=== PATIENT | male | born 1960 | race Caucasian/White ===

== ENCOUNTER 2017-12-22 12:38 | Inpatient (IN) ==
[2017-12-22] MEDS ORDERED: ONDANSETRON 4 MG/2 ML VIAL IV STA (13:23)
[2017-12-22] MEDS ORDERED: MORPHINE 2 MG/1 ML SYRINGE IV STA (13:23)
[2017-12-22] MEDS ORDERED: MORPHINE 10 MG/1 ML VIAL ONE (13:27)
[2017-12-22] MEDS ORDERED: ONDANSETRON 4 MG/2 ML VIAL ONE (13:27)
[2017-12-22] MEDS ORDERED: METOPROLOL TARTRATE 5 MG/5 ML VIAL IV ONE (13:56)
[2017-12-22] MEDS ORDERED: MAGNESIUM HYDROXIDE SUSP 30 ML UDCUP PO PRN (14:01)
[2017-12-22] MEDS ORDERED: POTASSIUM CHLORIDE 20 MEQ TABLET PO PRN (14:01)
[2017-12-22] MEDS ORDERED: BISACODYL 5 MG TABLET PO PRN (14:01)
[2017-12-22] MEDS ORDERED: ZALEPLON 5 MG CAPSULE PO PRN (14:01)
[2017-12-22] MEDS ORDERED: ONDANSETRON 4 MG/2 ML VIAL IV PRN (14:01)
[2017-12-22] MEDS ORDERED: MAGNESIUM SULF RIDER 2 GM in PREMIX 1 EACH IV PRN ×2 (14:01→14:05)
[2017-12-22] MEDS ORDERED: diphenhydrAMINE CAP 25 MG CAPSULE PO ONE (14:05)
[2017-12-22] MEDS ORDERED: DIAZEPAM 5 MG TABLET PO ONE (14:05)
[2017-12-22] MEDS ORDERED: POTASSIUM CHLORIDE RIDER 10 MEQ in PREMIX 1 EACH IV PRN (14:05)
[2017-12-22] MEDS ORDERED: METOPROLOL TARTRATE 5 MG/5 ML VIAL IV STA (14:12)
[2017-12-22] MEDS ORDERED: LIDOCAINE 1% 20 ML VIAL ONE (14:22)
[2017-12-22] MEDS ORDERED: MIDAZOLAM 2 MG/2 ML VIAL ONE ×2 (14:28→15:35)
[2017-12-22] MEDS ORDERED: MEPERIDINE 25 MG/1 ML VIAL ONE ×3 (14:28→15:35)
[2017-12-22] MEDS ORDERED: HEPARIN 5,000 UNIT/1 ML VIAL ONE ×2 (14:50→15:18)
[2017-12-22] MEDS ORDERED: TIROFIBAN 5,000 MCG/100 ML PREMIX IV ONE (14:51)
[2017-12-22] MEDS ORDERED: TIROFIBAN 5,000 MCG/100 ML PREMIX IV SCH (14:57)
[2017-12-22] MEDS ORDERED: NITROGLYCERIN DRIP 50 MG/250 ML BOTTLE IV ONE (15:32)
[2017-12-22] MEDS ORDERED: TICAGRELOR 90 MG TABLET ONE (16:17)
[2017-12-22] MEDS ORDERED: MORPHINE 2 MG/1 ML SYRINGE IV PRN (16:37)
[2017-12-22] MEDS ORDERED: NITROGLYCERIN SL 0.4 MG TABLET SL PRN (16:37)
[2017-12-22] MEDS ORDERED: ACETAMINOPHEN 325 MG TABLET PO PRN (16:37)
[2017-12-22] MEDS: ASPIRIN CHEW 81 MG TABLET PO SCH (18:09)
[2017-12-22] MEDS: CARVEDILOL 3.125 MG TABLET PO SCH ×2 (18:09→20:12)
[2017-12-22] MEDS: PANTOPRAZOLE 40 MG TABLET PO SCH (18:36)
[2017-12-22] MEDS: NITROGLYCERIN 2% OINT 1 INCH/GM PACK TOP SCH ×3 (18:36→23:07)
[2017-12-22] MEDS: SODIUM CHLORIDE 0.45% 1,000 ML IV SCH ×2 (18:36→20:17)
[2017-12-22 19:38] LABS: Troponin I Only 34.4 NG/ML (0.00-0.045)
[2017-12-22] MEDS: ACETAMINOPHEN/CODEINE 300-30 MG TABLET PO PRN (20:11)
[2017-12-22] MEDS: TICAGRELOR 90 MG TABLET PO SCH (20:12)
[2017-12-22] MEDS ORDERED: ROSUVASTATIN 20 MG TABLET PO SCH (21:00)
[2017-12-23 01:18] LABS: Basophils % 0.2 % (0.0-0.8); Eosinophils % 0.5 % (0.00-10.9); Hematocrit 40.5 VOL% (42.0-52.0); Immature Granulocytes % 0.2 %; Immature Granulocytes Absolute 0.02 #; Lymphocytes # 2.7 10*3/uL (1.4-4.0); Lymphocytes % 32.8 % (21.2-54.2); Mean Corpuscular HGB Conc 34.6 GM/DL (32-36); Mean Corpuscular Hemoglobin 28 PG (27-34); Mean Corpuscular Volume 80.7 FL (87-102); Mean Platelet Volume 10.2 FL (9.6-12.0); Monocytes # 0.7 10*3/uL (0.11-0.8); Monocytes % 8.7 % (1.7-12.7); Neutrophils # 4.7 10*3/uL (1.4-7.4); Neutrophils % 57.6 % (38.7-73.9); Platelet Count 141 T/CUMM (130-400); Red Blood Count 5.02 MC/CUMM (3.8-5.5); White Blood Count 8.2 T/CUMM (4-12)
[2017-12-23] MEDS ORDERED: SODIUM CHLORIDE 0.45% 1,000 ML IV SCH (01:30)
[2017-12-23 02:01] LABS: CKMB % 18.1 %
[2017-12-23 02:02] LABS: Troponin I Only 23.2 NG/ML (0.00-0.045)
[2017-12-23 02:26] LABS: Risk Ratio 2.65; VLDL CHOLESTEROL 13.6 MG/DL
[2017-12-23] MEDS: ACETAMINOPHEN/CODEINE 300-30 MG TABLET PO PRN (03:54)
[2017-12-23] MEDS: NITROGLYCERIN 2% OINT 1 INCH/GM PACK TOP SCH ×3 (03:55→12:04)
[2017-12-23] MEDS: CARVEDILOL 3.125 MG TABLET PO SCH (08:37)
[2017-12-23] MEDS: PANTOPRAZOLE 40 MG TABLET PO SCH (08:37)
[2017-12-23] MEDS: ASPIRIN CHEW 81 MG TABLET PO SCH (08:37)
[2017-12-23] MEDS: TICAGRELOR 90 MG TABLET PO SCH (08:37)
[2017-12-23 09:37] LABS: CKMB % 11.9 %
[2017-12-23 09:40] LABS: Troponin I Only 14.5 NG/ML (0.00-0.045)
[2017-12-23 14:11] VITALS: BP 140/85
== END 2017-12-23 14:50 | disposition home or self-care (01) | DRG 247 ==
LOC: EDBD → EDUNIT# → N.ED 12:38 → N.EDINP 14:01 → N.CC 14:10
PROVIDERS: ADMIT Internal Medicine Cardiovascular Disease; ATTEND Internal Medicine Cardiovascular Disease
PROC: CLCCHCL (ICD-10-PCS; 2017-12-22 15:15)

== ENCOUNTER 2018-03-19 11:17 | Inpatient (IN) ==
[2018-03-19] MEDS ORDERED: CLOPIDOGREL 300 MG TABLET ONE (11:22)
[2018-03-19] MEDS ORDERED: ADENOSINE 6 MG/2 ML VIAL ONE (11:23)
[2018-03-19] MEDS ORDERED: DILTIAZEM 50 MG/10 ML VIAL IV ONE ×2 (11:25→12:21)
[2018-03-19] MEDS ORDERED: DILTIAZEM 100 MG VIAL.ADD IV ONE (11:25)
[2018-03-19] MEDS ORDERED: SODIUM CHLORIDE 0.9% 100 ML IV ONE ×2 (11:25→14:42)
[2018-03-19] MEDS ORDERED: MAGNESIUM SULF RIDER 2 GM in PREMIX 1 EACH IV STA (11:28)
[2018-03-19] MEDS ORDERED: DILTIAZEM 50 MG/10 ML VIAL IV STA ×2 (11:28→12:25)
[2018-03-19] MEDS ORDERED: SODIUM CHLORIDE 0.9% 500 ML IV STA ×2 (11:28→14:05)
[2018-03-19] MEDS ORDERED: CLOPIDOGREL 300 MG TABLET PO STA (11:29)
[2018-03-19] MEDS: DILTIAZEM INJ 100 MG in SODIUM CHLORIDE 0.9% 100 ML IV SCH (11:35)
[2018-03-19 11:45] LABS: Basophils % 0.2 % (0.0-0.8); Eosinophils # 0.2 10*3/uL (0.0-0.87); Eosinophils % 2.7 % (0.00-10.9); Hematocrit 43.8 VOL% (42.0-52.0); Hemoglobin 14.8 GM/DL (14.0-18.0); Immature Granulocytes % 0.2 %; Immature Granulocytes Absolute 0.01 #; Lymphocytes # 2.7 10*3/uL (1.4-4.0); Lymphocytes % 45.1 % (21.2-54.2); Mean Corpuscular HGB Conc 33.8 GM/DL (32-36); Mean Corpuscular Hemoglobin 28 PG (27-34); Mean Corpuscular Volume 83.6 FL (87-102); Mean Platelet Volume 9.8 FL (9.6-12.0); Monocytes # 0.5 10*3/uL (0.11-0.8); Monocytes % 8.5 % (1.7-12.7); Neutrophils # 2.6 10*3/uL (1.4-7.4); Neutrophils % 43.3 % (38.7-73.9); Platelet Count 170 T/CUMM (130-400); Red Blood Count 5.24 MC/CUMM (3.8-5.5); Red Cell Distribution Width 13.2 % (9.3-17.3); White Blood Count 5.9 T/CUMM (4-12)
[2018-03-19 11:53] LABS: Partial Thromboplastin Time 27.8 SECS (0-40)
[2018-03-19] MEDS ORDERED: MAGNESIUM SULF RIDER 50 ML IV ONE (11:56)
[2018-03-19 12:18] LABS: Alanine Aminotransferase 64 U/L (16-61); Albumin 3.5 G/DL (3.4-5.0); Alkaline Phosphatase 166 U/L (45-117); Aspartate Amino Transferase 38 U/L (0-37); Blood Urea Nitrogen 12 MG/DL (7-18); Glucose 93 MG/DL (74-106); Osmolality,Calculated 280.3 MOS/KG (273-304); Potassium 3.7 MMOL/L (3.5-5.1); Sodium 141 MMOL/L (136-145); Thyroid Stimulating Hormone < 0.005 uIU/ml (0.358-3.74); Total Protein 7.3 G/DL (6.4-8.3); Troponin I Only 0.019 NG/ML (0.00-0.045)
[2018-03-19] MEDS ORDERED: ONDANSETRON 4 MG/2 ML VIAL IV PRN (13:11)
[2018-03-19] MEDS ORDERED: DOCUSATE SODIUM 100 MG CAPSULE PO PRN (13:11)
[2018-03-19] MEDS ORDERED: ACETAMINOPHEN 325 MG TABLET PO PRN (13:11)
[2018-03-19] MEDS ORDERED: ZALEPLON 5 MG CAPSULE PO PRN (13:11)
[2018-03-19] MEDS ORDERED: NITROGLYCERIN SL 0.4 MG TABLET SL PRN (13:15)
[2018-03-19] MEDS: APIXABAN 5 MG TABLET PO SCH ×2 (14:05→21:32)
[2018-03-19] MEDS: SODIUM CHLORIDE 0.9% 1,000 ML IV SCH (15:54)
[2018-03-19] MEDS: DILTIAZEM 30 MG TABLET PO SCH ×2 (17:51→21:33)
[2018-03-19] MEDS ORDERED: ROSUVASTATIN 20 MG TABLET PO SCH (21:00)
[2018-03-19] MEDS: ISOSORBIDE MONONITRATE 30 MG TABLET PO SCH (21:33)
[2018-03-20] MEDS: SODIUM CHLORIDE 0.9% 1,000 ML IV SCH (04:57)
[2018-03-20 05:47] LABS: Basophils % 0.2 % (0.0-0.8); Eosinophils # 0.2 10*3/uL (0.0-0.87); Eosinophils % 3.7 % (0.00-10.9); Hematocrit 35.3 VOL% (42.0-52.0); Immature Granulocytes % 0.3 %; Immature Granulocytes Absolute 0.02 #; Lymphocytes # 2.2 10*3/uL (1.4-4.0); Lymphocytes % 35.6 % (21.2-54.2); Mean Corpuscular HGB Conc 34.6 GM/DL (32-36); Mean Corpuscular Hemoglobin 28 PG (27-34); Mean Corpuscular Volume 81.7 FL (87-102); Mean Platelet Volume 10.1 FL (9.6-12.0); Monocytes # 0.5 10*3/uL (0.11-0.8); Monocytes % 7.2 % (1.7-12.7); Neutrophils # 3.3 10*3/uL (1.4-7.4); Platelet Count 149 T/CUMM (130-400); Red Blood Count 4.32 MC/CUMM (3.8-5.5); Red Cell Distribution Width 13.4 % (9.3-17.3); White Blood Count 6.3 T/CUMM (4-12)
[2018-03-20 05:48] LABS: Hemoglobin 12.2 GM/DL (14.0-18.0)
[2018-03-20 05:59] LABS: Calcium 8.5 MG/DL (8.5-10.1); Osmolality,Calculated 279.3 MOS/KG (273-304); Potassium 3.6 MMOL/L (3.5-5.1); Risk Ratio 2.11; VLDL CHOLESTEROL 11.2 MG/DL
[2018-03-20] MEDS: ISOSORBIDE MONONITRATE 30 MG TABLET PO SCH (08:50)
[2018-03-20] MEDS: DILTIAZEM 30 MG TABLET PO SCH ×2 (08:50→12:32)
[2018-03-20] MEDS: APIXABAN 5 MG TABLET PO SCH (08:50)
[2018-03-20] MEDS ORDERED: PANTOPRAZOLE 40 MG TABLET PO SCH (09:00)
[2018-03-20] MEDS ORDERED: CLOPIDOGREL 75 MG TABLET PO SCH (09:00)
[2018-03-20] MEDS ORDERED: ASPIRIN CHEW 81 MG TABLET PO SCH (09:00)
[2018-03-20] MEDS: DILTIAZEM INJ 100 MG in SODIUM CHLORIDE 0.9% 100 ML IV SCH (12:19)
[2018-03-20] MEDS ORDERED: PROPRANOLOL LA 80 MG CAPSULE PO SCH (15:00)
[2018-03-20 16:52] VITALS: BP 125/69
[2018-03-20] MEDS ORDERED: methIMAzole 10 MG TABLET PO SCH (21:00)
[2018-03-21] MEDS ORDERED: methIMAzole 5 MG TABLET PO SCH (09:00)
== END 2018-03-20 17:40 | disposition home or self-care (01) | DRG 309 ==
LOC: N.ED 11:17 → N.EDINP 13:11 → N.TELES 14:26
PROVIDERS: ADMIT Internal Medicine Cardiovascular Disease; ATTEND Internal Medicine Cardiovascular Disease

== ENCOUNTER 2019-09-08 06:25 | Inpatient (IN) ==
[2019-08-31 16:17] LABS: Basophils % 0.6 % (0.0-0.8); Eosinophils # 0.3 10*3/uL (0.0-0.87); Hematocrit 34.4 VOL% (42.0-52.0); Hemoglobin 10.3 GM/DL (14.0-18.0); Immature Granulocytes % 0.1 %; Immature Granulocytes Absolute 0.01 #; Lymphocytes # 3.3 10*3/uL (1.4-4.0); Lymphocytes % 46.6 % (21.2-54.2); Mean Corpuscular HGB Conc 29.9 GM/DL (32-36); Mean Corpuscular Volume 72.1 FL (87-102); Mean Platelet Volume 9.4 FL (9.6-12.0); Monocytes % 4.1 % (1.7-12.7); Neutrophils % 44.6 % (38.7-73.9); Platelet Count 216 T/CUMM (130-400); Red Blood Count 4.77 MC/CUMM (3.8-5.5); Red Cell Distribution Width 17.8 % (9.3-17.3)
[2019-08-31 16:48] LABS: Calcium 9.4 MG/DL (8.5-10.1); Osmolality,Calculated 280.1 MOS/KG (273-304)
[2019-09-08] MEDS ORDERED: ceFAZolin 1,000 MG in SYRINGE 1 EACH IV ONE (06:30)
[2019-09-08] MEDS ORDERED: HEPARIN 5,000 UNIT/1 ML VIAL ONE (07:22)
[2019-09-08] MEDS ORDERED: ceFAZolin 1,000 MG VIAL ONE (07:57)
[2019-09-08] MEDS ORDERED: LACTATED RINGERS 1,000 ML IV SCH (08:30)
[2019-09-08] MEDS ORDERED: TISSUE ADHESIVE 1 EACH APPLICATOR TOP ONE (09:28)
[2019-09-08] MEDS ORDERED: ONDANSETRON 4 MG/2 ML VIAL IV PRN ×2 (10:01→10:34)
[2019-09-08] MEDS ORDERED: HYDROmorphone 2 MG/1 ML VIAL IV PRN (10:01)
[2019-09-08] MEDS ORDERED: NITROGLYCERIN SL 0.4 MG TABLET SL PRN (10:04)
[2019-09-08] MEDS ORDERED: LIDOCAINE 2% 5 ML VIAL ONE (10:10)
[2019-09-08] MEDS ORDERED: fentaNYL 100 MCG/2 ML VIAL ONE ×2 (10:10)
[2019-09-08] MEDS ORDERED: PROPOFOL 200 MG/20 ML VIAL IV ONE (10:10)
[2019-09-08] MEDS ORDERED: HEPARIN 10,000 UNIT/10 ML VIAL ONE (10:10)
[2019-09-08] MEDS ORDERED: DESFLURANE 1 UNIT/15 MINUTE INH ONE (10:10)
[2019-09-08] MEDS ORDERED: KETAMINE 500 MG/10 ML VIAL ONE (10:11)
[2019-09-08] MEDS ORDERED: DEXAMETHASONE 4 MG/1 ML VIAL ONE (10:11)
[2019-09-08] MEDS ORDERED: MIDAZOLAM 2 MG/2 ML VIAL ONE (10:11)
[2019-09-08] MEDS ORDERED: ROCURONIUM 100 MG/10 ML VIAL IV ONE (10:12)
[2019-09-08] MEDS ORDERED: NEOSTIGMINE 10 MG/10 ML VIAL ONE (10:12)
[2019-09-08] MEDS ORDERED: PROTAMINE SULFATE 50 MG/5 ML VIAL IV ONE (10:12)
[2019-09-08] MEDS ORDERED: ACETAMINOPHEN 1,000 MG/100 ML VIAL IV ONE (10:12)
[2019-09-08] MEDS ORDERED: PHENYLEPHRINE 1 MG/10 ML SYRINGE IV ONE (10:12)
[2019-09-08] MEDS ORDERED: GLYCOPYRROLATE 0.4 MG/2 ML VIAL ONE (10:12)
[2019-09-08] MEDS ORDERED: ONDANSETRON 4 MG/2 ML VIAL ONE (10:12)
[2019-09-08] MEDS ORDERED: LACTATED RINGERS 1,000 ML IV ONE (10:12)
[2019-09-08] MEDS: HYDROmorphone 2 MG/1 ML VIAL IV PRN ×4 (10:28→10:50)
[2019-09-08] MEDS ORDERED: KETOROLAC 30 MG/1 ML VIAL ONE (10:49)
[2019-09-08] MEDS ORDERED: KETOROLAC 30 MG/1 ML VIAL IV ONE (10:51)
[2019-09-08] MEDS: LACTATED RINGERS 1,000 ML IV SCH ×3 (12:05→21:18)
[2019-09-08] MEDS: KETOROLAC 10 MG TABLET PO SCH ×2 (18:02→23:50)
[2019-09-08] MEDS: ISOSORBIDE MONONITRATE 30 MG TABLET PO SCH (21:16)
[2019-09-09] MEDS: LACTATED RINGERS 1,000 ML IV SCH ×3 (03:38→09:33)
[2019-09-09 04:39] LABS: Hematocrit 28.3 VOL% (42.0-52.0); Hemoglobin 8.2 GM/DL (14.0-18.0)
[2019-09-09] MEDS: KETOROLAC 10 MG TABLET PO SCH ×2 (05:59→11:42)
[2019-09-09] MEDS ORDERED: LEVOTHYROXINE 125 MCG TABLET PO SCH (06:30)
[2019-09-09 08:05] VITALS: BP 117/67
[2019-09-09] MEDS ORDERED: DULoxetine 30 MG CAPSULE PO SCH (09:00)
[2019-09-09] MEDS ORDERED: PANTOPRAZOLE 40 MG TABLET PO SCH (09:00)
[2019-09-09] MEDS ORDERED: amLODIPine 2.5 MG TABLET PO SCH (09:00)
[2019-09-09] MEDS ORDERED: ASPIRIN CHEW 81 MG TABLET PO SCH (09:00)
[2019-09-09] MEDS: ISOSORBIDE MONONITRATE 30 MG TABLET PO SCH (09:43)
== END 2019-09-09 12:04 | disposition home or self-care (01) | DRG 169 ==
LOC: N.OR 06:25 → N.SDSINP 06:26 → N.3E 11:22
PROVIDERS: ADMIT Surgery; ATTEND Surgery

== ENCOUNTER 2020-12-31 10:02 | Observation (INO) ==
[2020-12-31] MEDS ORDERED: SODIUM CHLORIDE 0.9% 1,000 ML IV STA (10:28)
[2020-12-31 10:51] LABS: Basophils % 0.3 % (0.0-0.8); Eosinophils # 0.2 10*3/uL (0.0-0.87); Eosinophils % 3.3 % (0.00-10.9); Hematocrit 35.7 VOL% (42.0-52.0); Hemoglobin 10.7 GM/DL (14.0-18.0); Immature Granulocytes % 0.2 %; Immature Granulocytes Absolute 0.01 #; Lymphocytes # 2.5 10*3/uL (1.4-4.0); Mean Corpuscular Volume 72.1 FL (87-102); Mean Platelet Volume 9.5 FL (9.6-12.0); Monocytes % 5.7 % (1.7-12.7); Neutrophils % 50.5 % (38.7-73.9); Platelet Count 238 T/CUMM (130-400); Red Blood Count 4.95 MC/CUMM (3.8-5.5); Red Cell Distribution Width 22.8 % (9.3-17.3); White Blood Count 6.3 T/CUMM (4-12)
[2020-12-31 11:00] LABS: PT Patient Result 10.6 SECS (9.8-11.9)
[2020-12-31 11:21] LABS: Albumin 3.7 G/DL (3.4-5.0); Bilirubin,Total 0.5 MG/DL (0.2-1.0); Osmolality,Calculated 273.7 MOS/KG (273-304); Potassium 3.5 MMOL/L (3.5-5.1)
[2020-12-31] MEDS ORDERED: ONDANSETRON 4 MG/2 ML VIAL IV PRN (11:32)
[2020-12-31] MEDS ORDERED: ACETAMINOPHEN 325 MG TABLET PO PRN (11:32)
[2020-12-31] MEDS ORDERED: NITROGLYCERIN SL 0.4 MG TABLET SL PRN (11:34)
[2020-12-31] MEDS ORDERED: oxyCODONE/ACETAMINOPHEN 5-325 MG TABLET PO PRN (13:48)
[2020-12-31] MEDS: LACTATED RINGERS 1,000 ML IV SCH (13:49)
[2020-12-31] MEDS: oxyCODONE/ACETAMINOPHEN 5-325 MG TABLET PO PRN ×2 (17:43→21:52)
[2020-12-31] MEDS: DOCUSATE SODIUM 100 MG CAPSULE PO SCH (21:51)
[2020-12-31] MEDS: GABAPENTIN 300 MG CAPSULE PO SCH (21:51)
[2020-12-31] MEDS: ROSUVASTATIN 10 MG TABLET PO SCH (21:51)
[2020-12-31] MEDS: ISOSORBIDE MONONITRATE 30 MG TABLET PO SCH (21:52)
[2021-01-01] MEDS: oxyCODONE/ACETAMINOPHEN 5-325 MG TABLET PO PRN ×2 (05:16→21:03)
[2021-01-01 05:51] LABS: Basophils % 0.8 % (0.0-0.8); Eosinophils # 0.3 10*3/uL (0.0-0.87); Eosinophils % 6.5 % (0.00-10.9); Hematocrit 31.4 VOL% (42.0-52.0); Hemoglobin 9.4 GM/DL (14.0-18.0); Immature Granulocytes % 0.2 %; Immature Granulocytes Absolute 0.01 #; Lymphocytes # 2.1 10*3/uL (1.4-4.0); Lymphocytes % 44.1 % (21.2-54.2); Mean Corpuscular HGB Conc 29.9 GM/DL (32-36); Mean Corpuscular Volume 72.2 FL (87-102); Mean Platelet Volume 9.4 FL (9.6-12.0); Monocytes % 6.9 % (1.7-12.7); Neutrophils % 41.5 % (38.7-73.9); Platelet Count 184 T/CUMM (130-400); Red Blood Count 4.35 MC/CUMM (3.8-5.5); Red Cell Distribution Width 22.7 % (9.3-17.3); White Blood Count 4.8 T/CUMM (4-12)
[2021-01-01 06:09] LABS: Calcium 8.3 MG/DL (8.5-10.1); Osmolality,Calculated 276.4 MOS/KG (273-304); Potassium 3.7 MMOL/L (3.5-5.1)
[2021-01-01 06:16] LABS: Hypochromasia 1+; Microcytosis 1+; Ovalocytes Slight; Platelet Estimate Adequate
[2021-01-01] MEDS: LEVOTHYROXINE 125 MCG TABLET PO SCH (07:39)
[2021-01-01] MEDS: ISOSORBIDE MONONITRATE 30 MG TABLET PO SCH ×2 (09:05→21:02)
[2021-01-01] MEDS: PANTOPRAZOLE 40 MG TABLET PO SCH (09:06)
[2021-01-01] MEDS: DOCUSATE SODIUM 100 MG CAPSULE PO SCH ×2 (09:06→21:02)
[2021-01-01] MEDS ORDERED: KETOROLAC 30 MG/1 ML VIAL IV ONE (12:00)
[2021-01-01] MEDS: LACTATED RINGERS 1,000 ML IV SCH ×2 (13:24→13:25)
[2021-01-01] MEDS: KETOROLAC 15 MG/1 ML VIAL IV SCH (17:55)
[2021-01-01] MEDS: ROSUVASTATIN 10 MG TABLET PO SCH (21:02)
[2021-01-01] MEDS: GABAPENTIN 300 MG CAPSULE PO SCH (21:02)
[2021-01-02] MEDS: KETOROLAC 15 MG/1 ML VIAL IV SCH ×3 (00:11→11:40)
[2021-01-02] MEDS: oxyCODONE/ACETAMINOPHEN 5-325 MG TABLET PO PRN ×2 (03:33→15:53)
[2021-01-02 05:33] LABS: Basophils % 0.4 % (0.0-0.8); Eosinophils # 0.3 10*3/uL (0.0-0.87); Eosinophils % 5.4 % (0.00-10.9); Hematocrit 31.5 VOL% (42.0-52.0); Hemoglobin 9.4 GM/DL (14.0-18.0); Immature Granulocytes % 0.2 %; Immature Granulocytes Absolute 0.01 #; Lymphocytes # 2.2 10*3/uL (1.4-4.0); Lymphocytes % 39.7 % (21.2-54.2); Mean Corpuscular HGB Conc 29.8 GM/DL (32-36); Mean Corpuscular Volume 73.1 FL (87-102); Mean Platelet Volume 10.1 FL (9.6-12.0); Monocytes % 8.1 % (1.7-12.7); Neutrophils % 46.2 % (38.7-73.9); Platelet Count 202 T/CUMM (130-400); Red Blood Count 4.31 MC/CUMM (3.8-5.5); Red Cell Distribution Width 22.5 % (9.3-17.3); White Blood Count 5.5 T/CUMM (4-12)
[2021-01-02] MEDS: LEVOTHYROXINE 125 MCG TABLET PO SCH (05:34)
[2021-01-02] MEDS ORDERED: cefOXitin 2,000 MG in SYRINGE 1 EACH IV ONE (08:34)
[2021-01-02] MEDS: ISOSORBIDE MONONITRATE 30 MG TABLET PO SCH (09:28)
[2021-01-02] MEDS: DOCUSATE SODIUM 100 MG CAPSULE PO SCH (09:38)
[2021-01-02] MEDS: PANTOPRAZOLE 40 MG TABLET PO SCH (09:38)
[2021-01-02] MEDS ORDERED: LIDOCAINE 1% 20 ML VIAL ONE (10:00)
[2021-01-02] MEDS ORDERED: BUPIVACAINE LIPOSOMAL 20 ML/266 MG VIAL ONE (10:00)
[2021-01-02] MEDS ORDERED: MIDAZOLAM 2 MG/2 ML VIAL ONE (10:12)
[2021-01-02] MEDS ORDERED: fentaNYL 100 MCG/2 ML VIAL ONE (10:12)
[2021-01-02] MEDS ORDERED: LIDOCAINE 2% 5 ML VIAL ONE (10:12)
[2021-01-02] MEDS ORDERED: propofoL 200 MG/20 ML VIAL IV ONE (10:12)
[2021-01-02] MEDS ORDERED: PHENYLEPHRINE 0.5% NASAL SPRAY 15 ML BOTTLE BOTH NARES ONE (10:32)
[2021-01-02] MEDS ORDERED: PHENYLEPHRINE 1 MG/10 ML SYRINGE IV ONE (10:47)
[2021-01-02] MEDS ORDERED: ONDANSETRON 4 MG/2 ML VIAL ONE (10:48)
[2021-01-02] MEDS ORDERED: ePHEDrine 50 MG/ML VIAL ONE (10:55)
[2021-01-02] MEDS ORDERED: LACTATED RINGERS 1,000 ML IV SCH (11:00)
[2021-01-02] MEDS ORDERED: PROMETHAZINE INJ 25 MG in SODIUM CHLORIDE 0.9% 50 ML IV PRN (11:25)
[2021-01-02] MEDS ORDERED: ONDANSETRON 4 MG/2 ML VIAL IV PRN (11:25)
[2021-01-02] MEDS ORDERED: MEPERIDINE 25 MG/1 ML VIAL IV PRN (11:25)
[2021-01-02] MEDS ORDERED: diphenhydrAMINE 50 MG/1 ML VIAL IV PRN (11:25)
[2021-01-02] MEDS: HYDROmorphone 2 MG/1 ML VIAL IV PRN ×4 (11:30→11:45)
[2021-01-02] MEDS ORDERED: KETOROLAC 30 MG/1 ML VIAL ONE (11:35)
[2021-01-02 16:11] VITALS: BP 113/70
== END 2021-01-02 17:15 | disposition home or self-care (01) ==
LOC: N.ED 10:02 → N.EDINP 10:02 → N.3E 12:55
PROVIDERS: ADMIT Surgery; ATTEND Surgery

== ENCOUNTER 2021-11-04 06:57 | Observation (INO) ==
[2021-11-04] MEDS ORDERED: HYDROmorphone 2 MG/1 ML VIAL IV STA (07:59)
[2021-11-04] MEDS ORDERED: ONDANSETRON 4 MG/2 ML VIAL IV PRN (09:12)
[2021-11-04] MEDS ORDERED: ACETAMINOPHEN 325 MG TABLET PO PRN (09:12)
[2021-11-04] MEDS: LACTATED RINGERS 1,000 ML IV SCH (09:35)
[2021-11-04] MEDS: PIPERACILLIN/TAZOBACTAM 3,375 MG in SODIUM CHLORIDE 0.9% 100 ML IV SCH ×3 (13:48→21:22)
[2021-11-05] MEDS: ENOXAPARIN 40 MG/0.4 ML SYRINGE SUBCUT SCH (03:40)
[2021-11-05] MEDS: PIPERACILLIN/TAZOBACTAM 3,375 MG in SODIUM CHLORIDE 0.9% 100 ML IV SCH ×3 (05:00→21:15)
[2021-11-05] MEDS: LACTATED RINGERS 1,000 ML IV SCH ×3 (05:00→21:15)
[2021-11-05 06:17] LABS: Basophils % 0.4 % (0.0-0.8); Eosinophils # 0.2 10*3/uL (0.0-0.87); Eosinophils % 3.3 % (0.00-10.9); Hematocrit 42.3 VOL% (42.0-52.0); Hemoglobin 13.4 GM/DL (14.0-18.0); Immature Granulocytes % 0.2 %; Immature Granulocytes Absolute 0.01 #; Lymphocytes # 1.7 10*3/uL (1.4-4.0); Lymphocytes % 30.8 % (21.2-54.2); Mean Corpuscular HGB Conc 31.7 GM/DL (32-36); Mean Corpuscular Volume 86.5 FL (87-102); Mean Platelet Volume 9.7 FL (9.6-12.0); Monocytes % 9.7 % (1.7-12.7); Neutrophils % 55.6 % (38.7-73.9); Platelet Count 177 T/CUMM (130-400); Red Blood Count 4.89 MC/CUMM (3.8-5.5); White Blood Count 5.5 T/CUMM (4-12)
[2021-11-05 06:40] LABS: Calcium 8.2 MG/DL (8.5-10.1); Potassium 3.4 MMOL/L (3.5-5.1)
[2021-11-05 06:47] LABS: Band Neutrophils 4 % (0-10); Eosinophils 2 % (0-10); Lymphocytes 27 % (20-55); Platelet Estimate Adequate; Segmented Neutrophils 59 % (50-85); Total Cells Counted 100
[2021-11-05] MEDS: PANTOPRAZOLE 40 MG TABLET PO SCH (09:01)
[2021-11-05] MEDS: HYDROmorphone 2 MG/1 ML VIAL IV PRN ×3 (11:20→21:16)
[2021-11-05] MEDS ORDERED: NITROGLYCERIN SL 0.4 MG TABLET SL PRN (15:15)
[2021-11-05] MEDS ORDERED: ALBUTEROL 2.5 MG/3 ML NEB RESP TX PRN (15:49)
[2021-11-05] MEDS: OFLOXACIN 0.3% OPH SOLN 5 ML BOTTLE RIGHT EYE SCH ×2 (16:36→21:15)
[2021-11-05] MEDS ORDERED: OFLOXACIN 0.3% OPH SOLN 5 ML BOTTLE RIGHT EYE SCH (17:00)
[2021-11-05] MEDS ORDERED: ROSUVASTATIN 20 MG TABLET PO SCH (21:00)
[2021-11-05] MEDS: GABAPENTIN 600 MG TABLET PO SCH (21:15)
[2021-11-05] MEDS: ISOSORBIDE MONONITRATE 30 MG TABLET PO SCH (21:15)
[2021-11-06] MEDS: HYDROmorphone 2 MG/1 ML VIAL IV PRN ×3 (00:50→08:59)
[2021-11-06] MEDS: PIPERACILLIN/TAZOBACTAM 3,375 MG in SODIUM CHLORIDE 0.9% 100 ML IV SCH ×2 (05:35→13:40)
[2021-11-06] MEDS: ENOXAPARIN 40 MG/0.4 ML SYRINGE SUBCUT SCH (05:35)
[2021-11-06] MEDS ORDERED: LEVOTHYROXINE 150 MCG TABLET PO SCH (06:30)
[2021-11-06] MEDS: ISOSORBIDE MONONITRATE 30 MG TABLET PO SCH (08:58)
[2021-11-06] MEDS: OFLOXACIN 0.3% OPH SOLN 5 ML BOTTLE RIGHT EYE SCH ×2 (08:58→12:02)
[2021-11-06] MEDS: PANTOPRAZOLE 40 MG TABLET PO SCH (08:58)
[2021-11-06] MEDS: GABAPENTIN 600 MG TABLET PO SCH (08:58)
[2021-11-06] MEDS ORDERED: DILTIAZEM CD 120 MG CAPSULE PO SCH ×2 (09:00)
[2021-11-06] MEDS: LACTATED RINGERS 1,000 ML IV SCH (10:29)
[2021-11-06 11:55] VITALS: BP 120/71
[2021-11-06] MEDS ORDERED: GABAPENTIN 300 MG CAPSULE PO SCH (12:00)
== END 2021-11-06 15:40 | disposition home or self-care (01) ==
LOC: EDBD → EDUNIT# → N.ED 06:57 → INTOOBSV 09:20 → N.EDINP 09:20 → N.3E 10:43
PROVIDERS: ADMIT Student in an Organized Health Care Education/Training Program; ATTEND Student in an Organized Health Care Education/Training Program